=== PATIENT | male | born 1940 | race African-American/Black ===

== ENCOUNTER 2023-12-19 03:16 | Inpatient (IN) | payer MEDICARE ==
[2023-12-19 04:13] VITALS: BMI 24.7
[2023-12-19] MEDS ORDERED: Communication Order-Pharmacy FS PRN (05:07)
[2023-12-19] MEDS ORDERED: FLU VACC QS2023(65UP)/MF59C/PF 60 MCG/0.5 ML SYRINGE IM ONE (05:15)
[2023-12-19 06:00] LABS: Cardiac Risk 3.8 (Less than 4.5); HDL Cholesterol 28 mg/dL (>60 Neg Risk); LDL Cholesterol, Calculated 70 mg/dL; Magnesium 2.4 mg/dL (1.6-2.6); Triglycerides 45 mg/dL (Less than 150)
[2023-12-19 06:06] LABS: Troponin I 0.029 ng/mL (< 0.028)
[2023-12-19] MEDS: Furosemide 40 MG (4 mL) VIAL SLOW IVP SCH ×3 (06:08→20:43)
[2023-12-19] MEDS: Azithromycin 500 MG in Sodium Chloride 0.9% 250 ML 250 ML IVPB SCH (06:08)
[2023-12-19 06:11] LABS: Cholesterol 107 mg/dl (< 200 Desired)
[2023-12-19] MEDS: Aspirin 325 MG TAB PO SCH (08:17)
[2023-12-19] MEDS: Metoprolol Tartrate 50 MG TAB PO SCH (08:17)
[2023-12-19] MEDS: Isosorbide Mononitrate 30 MG ER.TAB PO SCH (08:17)
[2023-12-19] MEDS: Enoxaparin 40 MG (0.4 mL) SYRINGE SC SCH (08:18)
[2023-12-19] MEDS: dilTIAZem CD 240 MG CAP PO SCH (08:18)
[2023-12-19] MEDS: Losartan 25 MG TAB PO SCH (08:18)
[2023-12-19 09:49] LABS: ALT (SGPT) 44 U/L (8-55); AST (SGOT) 37 U/L (5-34); Albumin 3.5 g/dL (3.4-4.8); Alkaline Phosphatase 97 U/L (40-110); Anion Gap 16 mmol/L (10-20); BUN (Urea Nitrogen) 16 mg/dL (8.4-25.7); Bilirubin, Total 0.8 mg/dL (0.2-1.2); Calc. Creatinine Clearance 64 mL/min (70-130); Calcium 8.1 mg/dL (7.8-10.44); Carbon Dioxide 20 mmol/L (23-31); Chloride 108 mmol/L (98-107); Estimated GFR 79; Globulin 3.3 g/dL (2.4-3.5); Glucose 192 mg/dL (83-110); Potassium 4.3 mmol/L (3.5-5.1); Protein, Total 6.8 g/dL (5.8-8.1); Sodium 140 mmol/L (136-145)
[2023-12-19 09:52] LABS: Troponin I 0.084 ng/mL (< 0.028)
[2023-12-19 09:53] LABS: Hematocrit 32.7 % (38.8-50.0); Hemoglobin 10.3 g/dL (13.5-17.5); Mean Corpuscular HGB CONC 31.5 g/dL (32.0-36.0); Mean Corpuscular Hemoglobin 24.8 pg (27.0-33.0); Mean Corpuscular Volume 78.8 fl (81.2-95.1); Platelet Count 610 10x3/uL (150-450); Red Blood Cell (RBC) Count 4.15 10x6/uL (4.32-5.72); White Blood Cell (WBC) Count 31.8 10x3/uL (3.5-10.5)
[2023-12-19 09:54] LABS: MDiff Complete? YES
[2023-12-19 10:12] LABS: Lymphocytes 3 % (21-51); Monocytes 1 % (0-10); Neutrophil 96 % (42-75)
[2023-12-19 10:16] LABS: Elliptocytes SLIGHT = 2-5 cells (100X) (0-1/hpf)
[2023-12-19 10:17] LABS: Anisocytosis SLIGHT = 6-15 cells (100X) (0-5/hpf); Giant Platelets SLIGHT HPF (0-5); Platelet Adequacy Comment Appears Increased; Poikilocytosis SLIGHT = 6-15 cells (100X) (0-5/hpf)
[2023-12-19 10:18] LABS: Hypochromia SLIGHT = 6-15 cells (100X) (0-5/hpf); Microcytosis SLIGHT = 6-15 cells (100X) (0-5/hpf)
[2023-12-19 11:33] LABS: Actual Bicarbonate (HCO3a) 22.1 mEq/L (22-28); Analyzer IN Cardio CS ICU; Base Excess (BEa) -1.6 mEq/L (-2.0 to +3.0); CO2 Tension 33.8 mmHg (35.0-45.0); Carboxyhemoglobin (COHb) 0.8 gm% (0.0-3.0); Hematocrit-ABG 33 % (42.0-52.0); Hemoglobin (Hb) 11.3 g/dL (14.0-18.0); O2 Tension (PaO2), arterial 104.9 mmHg (> 60.0); Potassium - ABG Lab 4.21 mmol/L (3.70-5.30); Puncture Site LRA; pH, Arterial 7.433 (7.35-7.45)
[2023-12-19 12:29] LABS: Troponin I 0.046 ng/mL (< 0.028)
[2023-12-19] MEDS: Empagliflozin 10 MG TAB PO SCH (13:47)
[2023-12-19] MEDS: Piperacillin/Tazobactam 3.375 GM in Sodium Chloride 0.9% 100 ML IVPB SCH ×2 (14:13→18:09)
[2023-12-19 15:19] LABS: Uric Acid 6.8 mg/dL (3.5-7.2)
[2023-12-19 16:37] LABS: Legionella Urinary Ag Negative (Negative); Strep pneumo Urine Ag NEGATIVE (NEGATIVE)
[2023-12-19] MEDS: Carvedilol 25 MG TAB PO SCH (16:44)
[2023-12-19] MEDS: Atorvastatin Calcium 20 MG TAB PO SCH (20:43)
[2023-12-19] MEDS: Famotidine 20 MG TAB PO SCH (20:43)
[2023-12-20] MEDS ORDERED: cefTRIAXone\\ROCEPHIN 2 GM in Sodium Chloride 0.9% 100 ML IVPB SCH (02:30)
[2023-12-20 06:27] LABS: Anion Gap 15 mmol/L (10-20); BUN (Urea Nitrogen) 25 mg/dL (8.4-25.7); Calc. Creatinine Clearance 42 mL/min (70-130); Calcium 8.3 mg/dL (7.8-10.44); Carbon Dioxide 24 mmol/L (23-31); Chloride 108 mmol/L (98-107); Estimated GFR 52; Glucose 118 mg/dL (83-110); Potassium 4.6 mmol/L (3.5-5.1); Sodium 142 mmol/L (136-145)
[2023-12-20 06:51] LABS: Hemoglobin 9.8 g/dL (13.5-17.5); Mean Corpuscular HGB CONC 31.6 g/dL (32.0-36.0); Mean Corpuscular Hemoglobin 24.9 pg (27.0-33.0); Mean Corpuscular Volume 78.7 fl (81.2-95.1); Platelet Count 588 10x3/uL (150-450); RBC Distribution Width 23.6 % (11.5-14.5); Red Blood Cell (RBC) Count 3.94 10x6/uL (4.32-5.72); White Blood Cell (WBC) Count 32.7 10x3/uL (3.5-10.5)
[2023-12-20 07:01] LABS: MDiff Complete? YES
[2023-12-20] MEDS ORDERED: Vancomycin 1 GM in Sodium Chloride 0.9% 250 ML 250 ML IVPB SCH (09:00)
[2023-12-20 09:20] LABS: Band 8 % (5-11); Neutrophil 88 % (42-75)
[2023-12-20 09:21] LABS: Lymphocytes 2 % (21-51); Monocytes 2 % (0-10)
[2023-12-20 09:23] LABS: Microcytosis SLIGHT = 6-15 cells (100X) (0-5/hpf); Ovalocytes MODERATE= 6-15 cells (100X) (0-1/hpf)
[2023-12-20 09:24] LABS: Anisocytosis MARKED = >30 cells (100X) (0-5/hpf); Poikilocytosis SLIGHT = 6-15 cells (100X) (0-5/hpf)
[2023-12-20 09:25] LABS: Platelet Adequacy Comment Appears Increased
[2023-12-20] MEDS: Lisinopril 10 MG TAB PO SCH (09:30)
[2023-12-20] MEDS: VANCOMYCIN 1.25 GM/250 ML BAG 1.25 GM in Premix 1 BAG IVPB SCH (09:38)
[2023-12-20] MEDS: Empagliflozin 10 MG TAB PO SCH (09:46)
[2023-12-20] MEDS ORDERED: Furosemide 40 MG (4 mL) VIAL SLOW IVP SCH (14:00)
[2023-12-20] MEDS: Famotidine 20 MG TAB PO SCH (21:10)
[2023-12-21] MEDS: Ipratropium/Albuterol 3 ML NEB NEB PRN (04:04)
[2023-12-21 06:13] LABS: ALT (SGPT) 37 U/L (8-55); AST (SGOT) 23 U/L (5-34); Albumin 3.4 g/dL (3.4-4.8); Alkaline Phosphatase 70 U/L (40-110); Anion Gap 13 mmol/L (10-20); BUN (Urea Nitrogen) 24 mg/dL (8.4-25.7); Bilirubin, Total 0.7 mg/dL (0.2-1.2); Calc. Creatinine Clearance 47 mL/min (70-130); Calcium 8.2 mg/dL (7.8-10.44); Carbon Dioxide 23 mmol/L (23-31); Chloride 107 mmol/L (98-107); Estimated GFR 58; Globulin 3.1 g/dL (2.4-3.5); Glucose 95 mg/dL (83-110); Potassium 4.1 mmol/L (3.5-5.1); Protein, Total 6.5 g/dL (5.8-8.1); Sodium 139 mmol/L (136-145)
[2023-12-21 06:18] LABS: Hemoglobin 10.8 g/dL (13.5-17.5); Mean Corpuscular HGB CONC 31.8 g/dL (32.0-36.0); Mean Corpuscular Hemoglobin 25.1 pg (27.0-33.0); Mean Corpuscular Volume 79.1 fl (81.2-95.1); Platelet Count 695 10x3/uL (150-450); RBC Distribution Width 23.6 % (11.5-14.5); White Blood Cell (WBC) Count 27.2 10x3/uL (3.5-10.5)
[2023-12-21 06:44] LABS: MDiff Complete? YES
[2023-12-21 06:51] LABS: Band 5 % (5-11); Lymphocytes 5 % (21-51); Monocytes 1 % (0-10); Neutrophil 89 % (42-75)
[2023-12-21 06:57] LABS: Anisocytosis MODERATE=16-30 cells (100X) (0-5/hpf); Poikilocytosis SLIGHT = 6-15 cells (100X) (0-5/hpf)
[2023-12-21 06:58] LABS: Elliptocytes SLIGHT = 2-5 cells (100X) (0-1/hpf); Microcytosis SLIGHT = 6-15 cells (100X) (0-5/hpf); Ovalocytes MODERATE= 6-15 cells (100X) (0-1/hpf)
[2023-12-21 07:00] LABS: Giant Platelets SLIGHT HPF (0-5); Platelet Adequacy Comment Appears Increased
[2023-12-21] MEDS: Vancomycin 1 GM in Sodium Chloride 0.9% 250 ML 250 ML IVPB SCH (09:05)
[2023-12-21] MEDS: Furosemide 40 MG (4 mL) VIAL SLOW IVP SCH (09:08)
[2023-12-21] MEDS ORDERED: Iopamidol 370 76% 100 ML VIAL ONE (10:50)
[2023-12-21] MEDS: Digoxin 0.25 MG TAB PO SCH (11:11)
[2023-12-21] MEDS ORDERED: Acetaminophen 325 MG TAB PO PRN (19:43)
[2023-12-22 04:54] LABS: Anion Gap 14 mmol/L (10-20); BUN (Urea Nitrogen) 18 mg/dL (8.4-25.7); Calc. Creatinine Clearance 52 mL/min (70-130); Carbon Dioxide 23 mmol/L (23-31); Chloride 107 mmol/L (98-107); Estimated GFR 65; Glucose 85 mg/dL (83-110); Potassium 3.8 mmol/L (3.5-5.1); Sodium 140 mmol/L (136-145)
[2023-12-22 05:03] LABS: Hematocrit 30.6 % (38.8-50.0); Hemoglobin 9.8 g/dL (13.5-17.5); Mean Corpuscular Hemoglobin 25.1 pg (27.0-33.0); Mean Corpuscular Volume 78.5 fl (81.2-95.1); Platelet Count 631 10x3/uL (150-450); RBC Distribution Width 23.2 % (11.5-14.5); White Blood Cell (WBC) Count 21.4 10x3/uL (3.5-10.5)
[2023-12-22 05:04] LABS: MDiff Complete? YES
[2023-12-22 05:24] LABS: Band 8 % (5-11); Eosinophils 2 % (0-10); Lymphocytes 3 % (21-51); Monocytes 5 % (0-10); Neutrophil 82 % (42-75)
[2023-12-22 05:26] LABS: Elliptocytes SLIGHT = 2-5 cells (100X) (0-1/hpf); Ovalocytes MODERATE= 6-15 cells (100X) (0-1/hpf)
[2023-12-22 05:27] LABS: Anisocytosis MODERATE=16-30 cells (100X) (0-5/hpf); Microcytosis SLIGHT = 6-15 cells (100X) (0-5/hpf); Poikilocytosis SLIGHT = 6-15 cells (100X) (0-5/hpf)
[2023-12-22 05:29] LABS: Giant Platelets SLIGHT HPF (0-5)
[2023-12-22] MEDS: Digoxin 0.25 MG TAB PO SCH (08:51)
[2023-12-22 08:57] LABS: Vancomycin, Trough 7.6 ug/mL
[2023-12-22] MEDS: Vancomycin 1 GM in Sodium Chloride 0.9% 250 ML 250 ML IVPB SCH (09:07)
[2023-12-22] MEDS: Furosemide 40 MG (4 mL) VIAL SLOW IVP SCH (14:29)
[2023-12-22] MEDS: Verapamil 80 MG TAB PO SCH (20:29)
[2023-12-23 05:34] LABS: Anion Gap 12 mmol/L (10-20); BUN (Urea Nitrogen) 19 mg/dL (8.4-25.7); Calc. Creatinine Clearance 48 mL/min (70-130); Carbon Dioxide 22 mmol/L (23-31); Chloride 110 mmol/L (98-107); Estimated GFR 58; Glucose 99 mg/dL (83-110); Potassium 3.5 mmol/L (3.5-5.1); Sodium 140 mmol/L (136-145)
[2023-12-23 05:43] LABS: Hematocrit 31.8 % (38.8-50.0); Hemoglobin 10.3 g/dL (13.5-17.5); Mean Corpuscular HGB CONC 32.4 g/dL (32.0-36.0); Mean Corpuscular Hemoglobin 25.1 pg (27.0-33.0); Mean Corpuscular Volume 77.4 fl (81.2-95.1); RBC Distribution Width 23.2 % (11.5-14.5); Red Blood Cell (RBC) Count 4.11 10x6/uL (4.32-5.72); White Blood Cell (WBC) Count 20.2 10x3/uL (3.5-10.5)
[2023-12-23 05:44] LABS: Platelet Count 667 10x3/uL (150-450)
[2023-12-23 05:46] LABS: MDiff Complete? YES
[2023-12-23 06:01] LABS: Band 5 % (5-11); Eosinophils 2 % (0-10); Lymphocytes 7 % (21-51); Monocytes 2 % (0-10); Neutrophil 84 % (42-75)
[2023-12-23 06:05] LABS: Anisocytosis MODERATE=16-30 cells (100X) (0-5/hpf); Elliptocytes SLIGHT = 2-5 cells (100X) (0-1/hpf); Microcytosis SLIGHT = 6-15 cells (100X) (0-5/hpf); Ovalocytes MODERATE= 6-15 cells (100X) (0-1/hpf); Poikilocytosis SLIGHT = 6-15 cells (100X) (0-5/hpf)
[2023-12-23 06:06] LABS: Giant Platelets SLIGHT HPF (0-5); Platelet Adequacy Comment Appears Increased
[2023-12-23] MEDS: Vancomycin HCl 750 MG in Sodium Chloride 0.9% 250 ML 250 ML IVPB SCH (09:02)
[2023-12-23] MEDS: Furosemide 40 MG TAB PO SCH (14:25)
[2023-12-24 06:58] LABS: #Basophils 0.1 10x3/uL (0.0-0.2); #Eosinphils 0.5 10x3/uL (0.0-0.5); #Monocytes 0.8 10x3/uL (0.0-1.1); #Neutrophils 16.2 10x3/uL (1.5-8.4); %Basophils 0.6 % (0.0-2.0); %Eosinophils 2.6 % (0.0-6.0); %Lymphocytes 7.3 % (18.0-47.0); %Monocytes 3.9 % (0.0-10.0); %Neutrophils 84.6 % (40.0-75.0); Anion Gap 14 mmol/L (10-20); BUN (Urea Nitrogen) 13 mg/dL (8.4-25.7); Calc. Creatinine Clearance 53 mL/min (70-130); Calcium 8.3 mg/dL (7.8-10.44); Carbon Dioxide 24 mmol/L (23-31); Chloride 107 mmol/L (98-107); Estimated GFR 66; Glucose 79 mg/dL (83-110); Hematocrit 34.4 % (38.8-50.0); Hemoglobin 10.8 g/dL (13.5-17.5); Mean Corpuscular HGB CONC 31.4 g/dL (32.0-36.0); Mean Corpuscular Hemoglobin 25.1 pg (27.0-33.0); Platelet Count 649 10x3/uL (150-450); Potassium 3.7 mmol/L (3.5-5.1); RBC Distribution Width 22.6 % (11.5-14.5); Sodium 141 mmol/L (136-145); White Blood Cell (WBC) Count 19.2 10x3/uL (3.5-10.5)
[2023-12-24 08:31] LABS: Anisocytosis MODERATE=16-30 cells (100X) (0-5/hpf)
[2023-12-24 08:32] LABS: Hypochromia SLIGHT = 6-15 cells (100X) (0-5/hpf); Microcytosis SLIGHT = 6-15 cells (100X) (0-5/hpf); Poikilocytosis MODERATE=16-30 cells (100X) (0-5/hpf); Polychromasia SLIGHT = 2-3 cells (100X) (0-2/hpf)
[2023-12-24 08:35] LABS: Elliptocytes MODERATE= 6-15 cells (100X) (0-1/hpf); Ovalocytes SLIGHT = 2-5 cells (100X) (0-1/hpf); Rouleaux Formation SLIGHT = 1-5 cells (100X) (None Seen); Target Cells SLIGHT = 2-5 cells (100X) (0-1/hpf)
[2023-12-24 08:36] LABS: Giant Platelets SLIGHT HPF (0-5); Large Platelets SLIGHT (None Seen); Platelet Adequacy Comment Appears Increased
[2023-12-24 08:37] LABS: Vancomycin, Trough 17.6 ug/mL
[2023-12-24 08:40] LABS: Reflex for Review?? YES
[2023-12-24] MEDS: Lisinopril 20 MG TAB PO SCH (10:19)
[2023-12-24 13:18] VITALS: BP 141/69; TEMP 98.1
== END 2023-12-24 18:35 | disposition home or self-care (01) | DRG 871 ==
LOC: CSHTELE 03:52 → CSHICU 11:00 → CSHTELE 20:03
PROVIDERS: ADMIT Family Medicine; ATTEND Hospitalist
PROC: 4A033R1 Measurement of Arterial Saturation, Peripheral, Percutaneous Approach (ICD-10-PCS; principal; 2023-12-19)
PROC: 3E03329 Introduction of Other Anti-infective into Peripheral Vein, Percutaneous Approach (ICD-10-PCS; 2023-12-19)
DX: A41.9 Sepsis, unspecified organism (principal); I50.43 Acute on chronic combined systolic (congestive) and diastolic (congestive) heart failure; J96.01 Acute respiratory failure with hypoxia; I42.9 Cardiomyopathy, unspecified; I24.89 Other forms of acute ischemic heart disease; J20.9 Acute bronchitis, unspecified; Z79.82 Long term (current) use of aspirin; Z79.899 Other long term (current) drug therapy; I11.0 Hypertensive heart disease with heart failure; E78.5 Hyperlipidemia, unspecified; D45 Polycythemia vera; I25.2 Old myocardial infarction; I25.10 Atherosclerotic heart disease of native coronary artery without angina pectoris; Z98.890 Other specified postprocedural states; Z82.49 Family history of ischemic heart disease and other diseases of the circulatory system; Z87.891 Personal history of nicotine dependence
CPT/HCPCS: 36415; 36600; 71045; 71275; 80048; 80053; 80061; 80202; 82805; 83605; 83735; 83880; 84145; 84443; 84550; 85025; 85060; 86140; 87449; 87899; 93005; 93010; 93306; 94640; 94760; 94762; J0456; J1650; J1940; J2543; J3370; J3490; J7050; J7620; Q9967